=== PATIENT | male | born 1965 | race Caucasian/White ===

== ENCOUNTER → 2019-01-05 | Outpatient (CLI) | payer OTHER ==
--- NOTE | 2019-01-05 13:55 | Diagnostic Imaging Report ---
Left knee MRI without contrast. History: Knee pain. Injury. Decreased range of motion. Pain not responding to conservative management. Comparison: None. Technique: Multiplanar multi-sequence MRI of the knee without contrast. Findings: Medial compartment: The medial meniscus is intact. There is articular cartilage fraying and deep fissuring at the periphery of the medial femoral condyle with underlying bone marrow edema. There is a mild sprain of the medial collateral ligament. The majority of the fibers are intact. Lateral compartment: No meniscal tear or cartilage abnormality. The LCL complex is normal. Intercondylar notch: The ACL and PCL are intact. Patellofemoral compartment: No chondromalacia or patellar dislocation. Extensor mechanism: The quadriceps and patellar tendons are normal. Other findings: There is a joint effusion and synovitis. There is no acute fracture, subluxation or avascular necrosis. Lobulated septated Terry's cyst with evidence of partial rupture into the posterior soft tissues. IMPRESSION: Articular cartilage fraying and deep fissuring in the medial femoral condyle with underlying bone marrow edema. Mild sprain of the medial collateral ligament. The majority of the fibers are intact. Joint effusion, synovitis and lobulated septated Terry's cyst with evidence of partial rupture into the posterior soft tissues. Signed by: Dr. Bernard Teixeira M.D. on 01/05/2019 1:51 PM
== END ==
LOC: MRI 10:35
PROVIDERS: ATTEND Family Medicine
DX: S83.412D Sprain of medial collateral ligament of left knee, subsequent encounter (principal); M25.462 Effusion, left knee; M71.22 Synovial cyst of popliteal space [Baker], left knee